=== PATIENT | male | born 1985 | race African-American/Black ===

== ENCOUNTER 2017-02-07 21:28 | Emergency (ER) | payer OTHER ==
[~2017-02-07] VITALS: Ht 177.8 cm; Wt 117.9 kg
[2017-02-07] MEDS ORDERED: IV NORMAL SALINE 1000ML BAG 1,000 ML IV ONE ×2 (21:45→23:45)
[2017-02-07 21:47] LABS: BASO # 0.1 x10^3/uL (0.0-0.2); BASO % 0 % (0-3); EOS % 0 % (0-3); HEMATOCRIT 46.9 % (39.0-53.0); HEMOGLOBIN 15.3 g/dL (13.0-17.5); LYMPH # 1.4 x10^3/uL (1.0-4.8); LYMPH % 10 % (24-48); MEAN CORPUSCULAR HEMOGLOBIN 26 pg (25-35); MEAN CORPUSCULAR HGB CONC 33 g/dL (31-37); MEAN CORPUSCULAR VOLUME 81 fL (79-100); MONO % 5 % (0-9); NEUT % 84 % (31-73); PLATELET COUNT 249 x10^3/uL (140-400); RED BLOOD COUNT 5.83 x10^6/uL (4.30-5.70); RED CELL DISTRIBUTION WIDTH 13.7 % (11.5-14.5); WHITE BLOOD COUNT 13.9 x10^3/uL (4.0-11.0)
--- NOTE | 2017-02-07 21:48 | PHYS DOC ---
Adult General Chief Complaint Chief Complaint: SEIZURE HPI HPI Patient is a 31 year old male with no significant past medical history presents after experiencing possible seizure. Patient was at work, he states she 's been working a lot lately. While he was at work he progressively started feeling sicker and sicker was feeling queasy. Patient to the break and thought he was feeling better but then he started feeling sick again so he decided to sit down, when he was sitting down he felt something coming and then he had people coming to help him and hold him in the next thing he remembers is waking him up and seeing EMS. EMS was told that the patient had a generalized seizure activity. EMS reports the patient had low blood pressure on initial measurement , there was no report of postictal state. In the ED the patient feels at baseline. Review of Systems Review of Systems Constitutional: Denies fever or chills [] Eyes: Denies change in visual acuity, redness, or eye pain [] HENT: Denies nasal congestion or sore throat. No tongue trauma Respiratory: Denies cough or shortness of breath [] Cardiovascular: No chest pain GI: Denies abdominal pain, nausea, vomiting, bloody stools or diarrhea [] : Denies dysuria or hematuria. No incontinence Musculoskeletal: Denies back pain or joint pain [] Integument: Denies rash or skin lesions. Had lots of sweating Neurologic: Denies headache, focal weakness or sensory changes [] Endocrine: Denies polyuria or polydipsia [] Current Medications Current Medications Current Medications Medications (Trade) Dose Ordered Sig/Artie Start Time Stop Time Status Last Admin Dose Admin Sodium Chloride 1,000 ml @ 1,000 mls/hr 1X ONCE 02/07/17 23:45 02/08/17 00:44 DC 02/08/17 00:04 1,000 MLS/HR Allergies Allergies Allergies Coded Allergies Type Severity Reaction Last Updated Verified No Known Drug Allergies 02/07/17 No Physical Exam Physical Exam Constitutional: Well developed, well nourished, no acute distress, non-toxic appearance. [] HENT: Normocephalic, atraumatic, , oropharynx dry no oral exudates, nose normal. [] Eyes: PERRLA, EOMI, conjunctiva normal, no discharge. [] Neck: Normal range of motion, no tenderness, supple, no stridor. No LAD, no meningeal signs Cardiovascular:Heart rate regular rhythm, no murmur him equal pulses, normal perfusion Lungs & Thorax: Bilateral breath sounds clear to auscultation, no tachypnea Abdomen: Bowel sounds normal, soft, no tenderness, no masses, no pulsatile masses. [] Skin: Warm, dry, no erythema, no rash. [] Back: No tenderness, no CVA tenderness. [] Extremities: No tenderness, no cyanosis, no DVT, ROM intact, no edema. [] Neurologic: Alert and oriented X 3, normal motor function,, no focal deficits noted. [] Psychologic: Affect normal, judgement normal, mood normal. [] Current Patient Data Vital Signs Vital Signs Date Time Temp Pulse Resp B/P (MAP) Pulse Ox O2 Delivery O2 Flow Rate FiO2 02/07/17 22:17 76 20 121/89 (100) 99 02/07/17 21:30 97.8 Room Air 97.8 Lab Values Laboratory Tests Test 02/07/17 21:35 White Blood Count 13.9 x10^3/uL (4.0-11.0) H Red Blood Count 5.83 x10^6/uL (4.30-5.70) H Hemoglobin 15.3 g/dL (13.0-17.5) Hematocrit 46.9 % (39.0-53.0) Mean Corpuscular Volume 81 fL (79-100) Mean Corpuscular Hemoglobin 26 pg (25-35) Mean Corpuscular Hemoglobin Concent 33 g/dL (31-37) Red Cell Distribution Width 13.7 % (11.5-14.5) Platelet Count 249 x10^3/uL (140-400) Neutrophils (%) (Auto) 84 % (31-73) H Lymphocytes (%) (Auto) 10 % (24-48) L Monocytes (%) (Auto) 5 % (0-9) Eosinophils (%) (Auto) 0 % (0-3) Basophils (%) (Auto) 0 % (0-3) Neutrophils # (Auto) 11.6 x10^3uL (1.8-7.7) H Lymphocytes # (Auto) 1.4 x10^3/uL (1.0-4.8) Monocytes # (Auto) 0.7 x10^3/uL (0.0-1.1) Eosinophils # (Auto) 0.0 x10^3/uL (0.0-0.7) Basophils # (Auto) 0.1 x10^3/uL (0.0-0.2) Sodium Level 141 mmol/L (136-145) Potassium Level 3.5 mmol/L (3.5-5.1) Chloride Level 99 mmol/L (98-107) Carbon Dioxide Level 27 mmol/L (21-32) Anion Gap 15 (6-14) H Blood Urea Nitrogen 28 mg/dL (8-26) H Creatinine 2.8 mg/dL (0.7-1.3) H Estimated GFR (Cockcroft-Gault) 26.6 BUN/Creatinine Ratio 10 (6-20) Glucose Level 134 mg/dL (70-99) H Calcium Level 9.7 mg/dL (8.5-10.1) Magnesium Level 2.7 mg/dL (1.8-2.4) H Total Bilirubin 1.0 mg/dL (0.2-1.0) Aspartate Amino Transferase (AST) 38 U/L (15-37) H Alanine Aminotransferase (ALT) 83 U/L (16-63) H Alkaline Phosphatase 52 U/L (46-116) Troponin I Quantitative < 0.017 ng/mL (0.000-0.055) Total Protein 8.9 g/dL (6.4-8.2) H Albumin 5.0 g/dL (3.4-5.0) Albumin/Globulin Ratio 1.3 (1.0-1.7) Thyroid Stimulating Hormone (TSH) 4.518 uIU/mL (0.358-3.74) H Laboratory Tests 02/07/17 21:35 Laboratory Tests 02/07/17 21:35 EKG EKG 2130, sinus rhythm, 69, no STEMI[] Radiology/Procedures Radiology/Procedures [] Course & Med Decision Making Course & Med Decision Making Pertinent Labs and Imaging studies reviewed. (See chart for details) [id number] patient in no distress in the room, receiving fluids. I have updated the patient and his family regarding the findings today. I have discussed with the patient the lab abnormalities including renal labs and thyroid stimulating hormone. I have advised the patient to follow-up with his doctor in 2 days to get his labs rechecked and for further evaluation if needed depending on the findings pain. The patient states she will do so, he agrees to follow-up as directed. Patient feels at baseline and has no complaints and no reservations being discharged home. [] Dragon Disclaimer Dragon Disclaimer This electronic medical record was generated, in whole or in part, using a voice recognition dictation system. Departure Departure Impression: Primary Impression: Syncope Additional Impressions: Vasovagal episode Seizure Dehydration Renal injury Thyroid condition Disposition: HOME, SELF-CARE Condition: IMPROVED Patient Instructions: Dehydration, Adult, Seizure, Adult, Syncope, [id number] , Thyroid Diseases Additional Instructions: You told us you have a primary care provider to follow-up with, please do so in 2 days to have general labs rechecked. He needs to have a your renal labs rechecked and also had your thyroid evaluated. He may have had a seizure today or the activity observed may have been the result of having had a syncopal episode and low blood pressure. This discussed this patient with your primary care provider Problem Qualifiers Deyvi GARCIA MD Feb 07, 2017 21:48
[2017-02-07 22:06] LABS: ALBUMIN/GLOBULIN RATIO 1.3 (1.0-1.7); CALCIUM 9.7 mg/dL (8.5-10.1); CREATININE 2.8 mg/dL (0.7-1.3); GFR 26.6; POTASSIUM 3.5 mmol/L (3.5-5.1); TOTAL PROTEIN 8.9 g/dL (6.4-8.2)
--- NOTE | 2017-02-07 22:28 | RAD ---
Exam performed: CT scan of the head without contrast. Date of Service: 02/07/2017. Comparison: None available. Clinical History: New onset seizure and vomiting. Technique: Helical acquisitions are obtained from the foramen magnum to the vertex without intravenous administration of contrast. Findings: The ventricles are midline without evidence of dilatation. Normal brantley-white differentiation is maintained. There is no extra axial fluid collection, intraparenchymal hemorrhage or mass lesion. The visualized portions of the orbits, paranasal sinuses and the mastoid air cells appear clear. The calvarium is intact. Impression: 1. No acute intracranial process detected. PQRS Compliance Statement: One or more of the following individualized dose reduction techniques were utilized for this examination: 1. Automated exposure control 2. Adjustment of the mA and/or kV according to patient size 3. Use of iterative reconstruction technique Electronically signed by: Montse Beebe MD (02/07/2017 10:25 PM) [facility]
[2017-02-08 01:47] VITALS: BP 130/66
--- NOTE | 2017-02-08 06:33 | EKG ---
[facility] [address] [place] [address] Test Date: 2017-02-07 Test Time: 21:29:23 Pat Name: HERBERT FRANCOIS Department: Room: Gender: M Community Affairs Manager: : 1985 Requested By: Deyvi GARCIA Order Number: [id number] Reading MD: Measurements Intervals [place] Rate: 69 P: 36 MN: 178 QRS: 69 QRSD: 88 T: 17 QT: 372 QTc: 400 Interpretive Statements SINUS RHYTHM QRS(T) CONTOUR ABNORMALITY CONSIDER ANTEROLATERAL MYOCARDIAL DAMAGE RI6.01 Unconfirmed report No previous ECG available for comparison
== END 2017-02-08 02:15 | disposition home or self-care (01) ==
LOC: ER 21:28
DX: R55 Syncope and collapse (principal); R56.9 Unspecified convulsions; E86.0 Dehydration; S37.009A Unspecified injury of unspecified kidney, initial encounter; X58.XXXA Exposure to other specified factors, initial encounter; Y93.89 Activity, other specified; Y99.8 Other external cause status; Y92.89 Other specified places as the place of occurrence of the external cause
CPT/HCPCS: 36415; 70450; 80053; 83735; 84443; 84484; 85025; 93005; 96360; 99285; J7030